=== PATIENT | female | born 1965 | race Caucasian/White ===

== ENCOUNTER → 2016-10-01 | Day surgery (SDC) | payer OTHER ==
[2016-10-01 08:06] LABS: HCT 37.6 % (37.0-47.0); HGB 12.7 g/dl (12.5-16.0); MCH 29.9 pg (25.0-31.0); MCHC 33.8 g/dL (32.0-36.0); MCV 88.5 fL (78.0-100.0); MPV 12.6 fL (6.0-9.5); RBC 4.25 M/uL (4.20-5.40); RDW 13.1 % (11.5-14.0)
== END | disposition home or self-care (01) ==
LOC: FAS 07:25
PROVIDERS: Legal Medicine
DX: M23.203 Derangement of unspecified medial meniscus due to old tear or injury, right knee (principal); S83.511A Sprain of anterior cruciate ligament of right knee, initial encounter; Z90.710 Acquired absence of both cervix and uterus
CPT/HCPCS: 36415; C1713; J0690; J1100; J1170; J2405; J2704; J2795; J3010